=== PATIENT | male | born 1975 | race American Indian/Alaskan Native ===

== ENCOUNTER 2016-09-22 17:15 | Emergency (ER) | payer OTHER ==
--- NOTE | 2016-09-22 22:26 | Emergency Department Report ---
ED Male HPI - General Chief complaint: Urogenital-Male Stated complaint: POSS STD Time Seen by Provider: 09/22/16 22:00 Source: patient Mode of arrival: Ambulatory Limitations: No Limitations - History of Present Illness Initial comments: Patient states he has had unprotected sex with someone who told him they were diagnosed with gonorrhea and chlamydia. He admits to some white discharge but only with bearing down to have a bowel movement. He denies burning with urination. He does admit to pain on the posterior side of his testicles greater on the right. Symptoms have been present 2 days. MD Complaint: testicle pain, testicle swelling, penile discharge -: Gradual Location: penis, right testicle, left testicle Radiation: none Severity: moderate Severity scale (0 -10): 7 Quality: other (sqeezing) Consistency: intermittent Improves with: none Worsens with: other (bearing down) new sexual partner discharge, swelling. denies: blood in urine, dysuria, fever, nausea/vomiting - Related Data Sexually active: Yes Previous Rx's Medication Instructions Recorded Last Taken Type Doxycycline Monohydrate [Mondoxyne 100 mg PO BID #14 capsule 09/22/16 Unknown Rx Nl] Ibuprofen [Motrin 600 MG tab] 600 mg PO BID PRN #10 tablet 09/22/16 Unknown Rx Allergies Allergy/AdvReac Type Severity Reaction Status Date / Time No Known Allergies Allergy Verified 09/22/16 17:55 ED Review of Systems ROS: Stated complaint: POSS STD Other details as noted in HPI Constitutional: denies: chills, fever Respiratory: denies: cough, shortness of breath, wheezing Cardiovascular: denies: chest pain, palpitations Gastrointestinal: denies: abdominal pain, nausea, diarrhea Genitourinary: discharge, testicular pain Musculoskeletal: denies: back pain, joint swelling, arthralgia Skin: denies: rash, lesions Neurological: denies: headache, weakness, paresthesias ED Past Medical Hx - Past Medical History Previous Medical History?: No - Surgical History Past Surgical History?: No - Social History Smoking Status: Current Every Day Smoker Substance Use Type: Alcohol, Marijuana - Medications Home Medications: Home Medications Medication Instructions Recorded Confirmed Last Taken Type Doxycycline Monohydrate [Mondoxyne 100 mg PO BID #14 capsule 09/22/16 Unknown Rx Nl] Ibuprofen [Motrin 600 MG tab] 600 mg PO BID PRN #10 tablet 09/22/16 Unknown Rx ED Physical Exam - General Limitations: No Limitations General appearance: alert, in no apparent distress - Head Head exam: Present: atraumatic, normocephalic - Respiratory Respiratory exam: Present: normal lung sounds bilaterally. Absent: respiratory distress - Cardiovascular Cardiovascular Exam: Present: regular rate, normal rhythm. Absent: systolic murmur, diastolic murmur, rubs, gallop - GI/Abdominal GI/Abdominal exam: Present: soft, normal bowel sounds - exam: Present: normal inspection, testicular tenderness, other (ttp posterior testicles, > on right). Absent: urethral discharge, scrotal swelling - Extremities Exam Extremities exam: Present: normal inspection, full ROM - Neurological Exam Neurological exam: Present: alert, oriented X3 - Psychiatric Psychiatric exam: Present: normal affect, normal mood - Skin Skin exam: Present: warm, dry, intact, normal color. Absent: rash ED Course Vital Signs 09/22/16 17:40 Temperature 98.5 F Pulse Rate 62 Respiratory 19 Rate Blood Pressure 158/95 O2 Sat by Pulse 99 Oximetry ED Medical Decision Making - Medical Decision Making Patient presents with exposure to gonorrhea/chlamydia. He also has epididymitis. I will give him Rocephin 150 IM and doxycycline 100 mg twice a day 7 days. We'll advise him to follow-up with his primary care physician for further STD testing. A lot of advised him to follow up with PCP for elevated blood pressure. - Differential Diagnosis torsion, std, gonorrhea, chlamydia Critical Care Time: No Critical care attestation.: If time is entered above; I have spent that time in minutes in the direct care of this critically ill patient, excluding procedure time. ED Disposition Clinical Impression: STD exposure, Epididymitis, Elevated BP without diagnosis of hypertension Disposition: DISCHARGED TO HOME OR SELFCARE Is pt being admited?: No Does the pt Need Aspirin: No Condition: Stable Instructions: Epididymitis (ED), Sexually Transmitted Diseases (ED), Safe Sex ( ED), Heart Healthy Diet (ED), DASH Eating Plan (ED), Low Sodium Diet (ED) Additional Instructions: Follow-up in the ED if pain unresolved, testicle swelling, symptoms do not resolve or worsen. Follow-up with PCP for elevated blood pressure. Prescriptions: Doxycycline Monohydrate [Mondoxyne Nl] 100 mg PO BID #14 capsule Ibuprofen [Motrin 600 MG tab] 600 mg PO BID PRN #10 tablet PRN Reason: Pain Referrals: PRIMARY CARE,MD [Primary Care Provider] - 3-5 Days Forms: STI Treatment and Prevention
[2016-09-22] MEDS: XYLOCAINE 1% MPF 5 mL INFILTRATI ONE (23:00)
[2016-09-22] MEDS: ROCEPHIN IM ONE (23:00)
[2016-09-22 23:13] VITALS: BP 130/90
== END 2016-09-22 23:14 | disposition home or self-care (01) ==
LOC: ED 17:15
DX: N45.1 Epididymitis (principal); R03.0 Elevated blood-pressure reading, without diagnosis of hypertension; F17.200 Nicotine dependence, unspecified, uncomplicated; F12.10 Cannabis abuse, uncomplicated; Z20.2 Contact with and (suspected) exposure to infections with a predominantly sexual mode of transmission
CPT/HCPCS: 87591; 96372; 99282; J0696

== ENCOUNTER 2021-12-24 10:38 | Emergency (ER) | payer SELFPAY ==
[2021-12-24] MEDS ORDERED: LIDOCAINE-MPF (1%) 10 MG/1 ML VIAL 5 ML INFILTRATI ONE (12:51)
--- NOTE | 2021-12-24 12:55 | Emergency Department Report ---
ED Male HPI - General Chief complaint: Urogenital-Male Stated complaint: STD CHECK/BACK PAIN Time Seen by Provider: 12/24/21 12:42 Source: patient Mode of arrival: Ambulatory Limitations: No Limitations - History of Present Illness Initial comments: 46-year-old -[place]ong[place] male presents to the emergency room stating he needs treatment for gonorrhea and chlamydia. Patient denies any penile discharge. He states his partner told him that he needed to be treated. He also complains of lower back pain mostly on the right. 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 Patient denies any injury. Dates has been going on for about 2 weeks. Patient states Advil has helped with the symptoms. Onset/Timin -: week(s) Radiation: none Quality: aching Consistency: intermittent Improves with: none Worsens with: movement denies other symptoms - Related Data Sexually active: Yes (Unprotected) Previous Rx's Medication Instructions Recorded Last Taken Type Doxycycline Monohydrate [Mondoxyne 100 mg PO BID #14 capsule 09/22/16 Unknown Rx Nl] Ibuprofen [Motrin 600 MG tab] 600 mg PO BID PRN #10 tablet 09/22/16 Unknown Rx Doxycycline Hyclate [Doxycycline 100 mg PO Q12HR 7 Days #14 tab 12/24/21 Unknown Rx Hyclate TAB] Allergies Allergy/AdvReac Type Severity Reaction Status Date / Time No Known Allergies Allergy Verified 12/24/21 12:28 ED Review of Systems ROS: Stated complaint: STD CHECK/BACK PAIN Other details as noted in HPI Comment: All other systems reviewed and negative ED Past Medical Hx - Social History Smoking Status: Current Every Day Smoker Substance Use Type: Alcohol, Marijuana - Medications Home Medications: Home Medications Medication Instructions Recorded Confirmed Last Taken Type Doxycycline Monohydrate [Mondoxyne 100 mg PO BID #14 capsule 09/22/16 Unknown Rx Nl] Ibuprofen [Motrin 600 MG tab] 600 mg PO BID PRN #10 tablet 09/22/16 Unknown Rx Doxycycline Hyclate [Doxycycline 100 mg PO Q12HR 7 Days #14 tab 12/24/21 Unknown Rx Hyclate TAB] ED Physical Exam - General Limitations: No Limitations General appearance: alert, in no apparent distress - Head Head exam: Present: atraumatic, normocephalic - Eye Eye exam: Present: normal appearance - ENT ENT exam: Present: mucous membranes moist - Neck Neck exam: Present: normal inspection - Respiratory Respiratory exam: Present: normal lung sounds bilaterally. Absent: respiratory distress - Cardiovascular Cardiovascular Exam: Present: bradycardia - GI/Abdominal GI/Abdominal exam: Present: soft. Absent: distended, tenderness - Back Exam Back exam: Present: full ROM - Expanded Back Exam Expanded Back exam: Sciatic Notch Tenderness: Right - Neurological Exam Neurological exam: Present: alert, oriented X3, normal gait - Psychiatric Psychiatric exam: Present: normal affect, normal mood - Skin Skin exam: Present: warm, dry, intact, normal color. Absent: rash ED Course Vital Signs 12/24/21 12:29 Temperature 98.6 F Pulse Rate 50 L Respiratory 18 Rate Blood Pressure 173/102 [Left] O2 Sat by Pulse 100 Oximetry ED Medical Decision Making - Medical Decision Making 46-year-old -[place]ong[place] male presents to the emergency room stating he needs treatment for gonorrhea and chlamydia. Patient denies any penile discharge. He states his partner told him that he needed to be treated. He also complains of lower back pain mostly on the right. 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 Patient denies any injury. Dates has been going on for about 2 weeks. Patient states Advil has helped with the symptoms. Patient was given a Rocephin 250 mg IM. Discharged on doxycycline 100 mg p.o. twice daily for 7 days. Patient is instructed to take ibuprofen or naproxen for pain management of his back. Critical care attestation.: If time is entered above; I have spent that time in minutes in the direct care of this critically ill patient, excluding procedure time. ED Disposition Clinical Impression: Concern about STD in male without diagnosis, Lower back pain, Elevated blood pressure reading Disposition: HOME / SELF CARE / HOMELESS Is pt being admited?: No Does the pt Need Aspirin: No Condition: Stable Instructions: Preventing Back Pain for New Parents, Safe Sex Additional Instructions: Please follow-up at the health department for full STD evaluation. Please follow-up with a primary care provider for your elevated blood pressure. Please complete your antibiotics refrain from intercourse for the next 2 weeks. Prescriptions: Doxycycline Hyclate [Doxycycline Hyclate TAB] 100 mg PO Q12HR 7 Days #14 tab Referrals: [facility] [Outside] - 3-5 Days SAMIR STEVENSON MD [Staff Physician] - 3-5 Days Time of Disposition: 12:56
[2021-12-24 13:31] VITALS: BP 131/54
== END 2021-12-24 13:31 | disposition home or self-care (01) ==
LOC: ED 10:38
DX: Z20.2 Contact with and (suspected) exposure to infections with a predominantly sexual mode of transmission (principal); M54.50 Low back pain, unspecified; R03.0 Elevated blood-pressure reading, without diagnosis of hypertension; F17.200 Nicotine dependence, unspecified, uncomplicated; F10.20 Alcohol dependence, uncomplicated; F12.90 Cannabis use, unspecified, uncomplicated
CPT/HCPCS: 96372; 99282; J0696; J3490

== ENCOUNTER 2022-03-09 07:37 | Emergency (ER) | payer SELFPAY ==
[2022-03-09 07:51] VITALS: BP 140/96
[2022-03-09] MEDS ORDERED: oxyCODONE /ACETAMINOPHEN 5-325MG TAB PO ONE (12:12)
[2022-03-09] MEDS ORDERED: CYCLOBENZAPRINE 10 MG TAB PO ONE (12:12)
[2022-03-09] MEDS ORDERED: KETOROLAC 10 MG TAB PO ONE (12:12)
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
== END 2022-03-09 14:37 | disposition home or self-care (01) ==
LOC: ED 07:37
DX: M54.2 Cervicalgia (principal); M54.50 Low back pain, unspecified; V89.2XXA Person injured in unspecified motor-vehicle accident, traffic, initial encounter; Y93.89 Activity, other specified; Y92.89 Other specified places as the place of occurrence of the external cause; Y99.8 Other external cause status
CPT/HCPCS: 72040; 72100; 99283